=== PATIENT | female | born 1950 | race Caucasian/White ===

== ENCOUNTER 2017-10-06 09:57 | Day surgery (SDC) | payer MEDICARE, MEDICAID ==
[2017-10-05 18:05] VITALS: BMI 20.5
[~2017-10-06 09:57] MED LIST: Cyclopentolate 1% Opth Drop 2 ML BOT FS SCH; Fluorouracil 100 MG, Enoxaparin Sodium 25 MG, EPINEPHrine 0.3 MG in Ophthalmic Irrigati... IVPB SCH; Phenylephrine HCl 2.5% Ophth Soln 5 ML BOT FS SCH
[2017-10-06] MEDS ORDERED: Phenylephrine HCl 2.5% Ophth Soln 5 ML BOT ONE (10:26)
[2017-10-06] MEDS ORDERED: Cyclopentolate 1% Opth Drop 2 ML BOT ONE (10:26)
[2017-10-06] MEDS ORDERED: Diprivan 20 ML ONE (11:24)
[2017-10-06] MEDS ORDERED: Ondansetron HCl/PF 4 MG/2 ML Vial ONE (11:24)
[2017-10-06] MEDS ORDERED: Midazolam HCl 2 mg/2 ml Vial ONE (11:24)
[2017-10-06] MEDS ORDERED: Fentanyl 100 MCG/2 ML VIAL ONE (11:24)
[2017-10-06] MEDS ORDERED: Lidocaine 1% PF 5 ML VIAL ONE (16:17)
[2017-10-06] MEDS ORDERED: Propofol 200 MG/20 ML VIAL ONE (16:17)
--- NOTE | 2017-10-06 16:40 | OP ---
DATE OF PROCEDURE: 10/06/2017 PREOPERATIVE DIAGNOSIS: Macular hole, left eye. POSTOPERATIVE DIAGNOSIS: Macular hole, left eye. PROCEDURES: Pars plana vitrectomy, internal limiting membrane peel, left eye. SURGEON: Bossman Seth M.D. ANESTHESIA: General endotracheal anesthesia. PROCEDURE IN DETAIL: The patient was identified in the preoperative holding area. Appropriate infor med consent for the planned surgical procedure on the left eye had been obtained. The patient was tr ansported to the operative suite where appropriate cardiopulmonary monitoring was established. Local anesthesia was obtained using retrobulbar and modified Van Lint lid block using 50/50 mixture of 4% lidocaine and 0.75% bupivacaine. The patient was prepped and draped in the usual sterile manner for ophthalmic surgery on the left eye. Lid speculum was placed in the left eye. The 25-gauge trocars w ere placed in conjunctiva and sclera superotemporally, inferotemporally, and superonasally. Infusion line was placed inferotemporally. Light pipe and vitreous cutter were inserted into the eye. Core of vitrectomy was performed. Indocyanine green dye was infused onto the posterior pole x2, identifyi ng the internal limiting membrane. This was elevated using Bronson scraper and peeled into multiple pie merly from the posterior pole. Indirect endolaser photocoagulation was used to place prophylactic lase r behind the sclerotomy sites and wide field viewing system was used to examine the retina 360 degree s. No holes, breaks or tears were identified. A 15% percent perfluoropropane gas was infused into t he eye. Trocars were removed and eye was noted to retain pressure well. Retrobulbar Kenalog and sub conjunctival Ancef were placed. Atropine and antibiotic ointment were placed, and the eye was patche d and shielded. The patient was taken to the postoperative recovery unit in good condition having muñoz ffered no immediate perioperative complications. The patient was instructed to keep patch and shield on, avoid lifting or bending, and follow up in the morning with Dr. Seth.
== END 2017-10-06 15:28 | disposition home or self-care (01) ==
LOC: SDC 09:57
PROVIDERS: ATTEND Ophthalmology Retina Specialist
PROC: 08T53ZZ Resection of Left Vitreous, Percutaneous Approach (ICD-10-PCS; principal; 2017-10-06)
PROC: 08NF3ZZ Release Left Retina, Percutaneous Approach (ICD-10-PCS; 2017-10-06)
PROC: 3E0C3GC Introduction of Other Therapeutic Substance into Eye, Percutaneous Approach (ICD-10-PCS; 2017-10-06)
DX: H35.342 Macular cyst, hole, or pseudohole, left eye (principal); I69.354 Hemiplegia and hemiparesis following cerebral infarction affecting left non-dominant side; I25.2 Old myocardial infarction; I12.9 Hypertensive chronic kidney disease with stage 1 through stage 4 chronic kidney disease, or unspecified chronic kidney disease; N18.3 Chronic kidney disease, stage 3 (moderate); K21.9 Gastro-esophageal reflux disease without esophagitis; F32.9 Major depressive disorder, single episode, unspecified; E78.00 Pure hypercholesterolemia, unspecified; Z79.82 Long term (current) use of aspirin; Z79.899 Other long term (current) drug therapy; Z98.51 Tubal ligation status; Z95.1 Presence of aortocoronary bypass graft; Z96.642 Presence of left artificial hip joint; Z95.818 Presence of other cardiac implants and grafts; Z90.49 Acquired absence of other specified parts of digestive tract; Z90.5 Acquired absence of kidney; Z98.890 Other specified postprocedural states
CPT/HCPCS: 67025; J0171; J1650; J2001; J2250; J2405; J2704; J3010; J9190

== ENCOUNTER 2018-04-27 13:09 | Outpatient (CLI) | payer MEDICARE, MEDICAID | END 2018-04-27 13:10 | disposition home or self-care (01) | LOC: BICMAMMO 13:09 | PROVIDERS: ATTEND Family Medicine | DX: Z12.31 Encounter for screening mammogram for malignant neoplasm of breast (principal); R92.1 Mammographic calcification found on diagnostic imaging of breast | CPT/HCPCS: 77063; 77067 ==

== ENCOUNTER 2019-02-27 12:02 | Outpatient (CLI) | payer MEDICARE, OTHER ==
--- NOTE | 2019-02-27 14:51 | MRI ---
LUMBAR SPINE MRI WITHOUT IV CONTRAST: Date: 02/27/19 HISTORY: Left-sided sciatica with left hip pain. COMPARISON: 02/10/17. FINDINGS: Conus medullaris region is unremarkable, terminating at approximately L1-L2. Generalized disc desicca tion changes and ligament and facet hypertrophic changes. Bilateral renal T1 hypointense/T2 hyperintense foci, statistically cysts, showing little change from prior study. There is marked scarring and cortical volume loss of the left kidney. No canal or foraminal stenosis at T12-L1. At L1-L2, there are diffuse osteophytosis changes with a small central annular fissure with very mini mal thinning of the ventral left lateral recess. At L2-L3, there is diffuse disc bulging with moderate left lateral recess and mild right lateral rece ss stenosis, and mild foraminal stenosis, with associated annular fissure. At L3-L4, there is mild disc bulging with moderate left lateral recess stenosis and very mild right l ateral recess stenosis with mild foraminal stenosis. At L4-L5, there is mild bilateral recess stenosis and foraminal stenosis. At L5-S1, there is no significant associated stenosis. No abnormal marrow signal. IMPRESSION: 1. Variable severity multilevel mostly lateral recess and mild foraminal stenosis as above. 2. Renal T2 hyperintense, T1 hypointense foci, statistically cysts, with prominent left renal cortic al loss. POS: [facility]
== END 2019-02-27 12:03 | disposition home or self-care (01) ==
LOC: BICMRI 12:02
PROVIDERS: ATTEND Orthopaedic Surgery
DX: M54.32 Sciatica, left side (principal); N28.89 Other specified disorders of kidney and ureter; M48.061 Spinal stenosis, lumbar region without neurogenic claudication; N28.1 Cyst of kidney, acquired; R93.7 Abnormal findings on diagnostic imaging of other parts of musculoskeletal system
CPT/HCPCS: 72148

== ENCOUNTER 2019-04-30 14:04 | Outpatient (CLI) | payer MEDICARE, OTHER ==
--- NOTE | 2019-04-30 15:49 | MMO ---
Bilateral MAMMO Bilat Screen [facility]. CLINICAL HISTORY: Patient is 69 years old and is seen for screening. The patient has no family history of breast cancer. The patient has no personal history of cancer. VIEWS: The views performed were: bilateral craniocaudal with tomosynthesis and bilateral mediolateral oblique with tomosynthesis. FILMS COMPARED: The present examination has been compared to prior imaging studies performed at [facility] on 04/26/2017 and 04/27/2018, and at [facility] on 10/28/2011 and 06/27/2015. MAMMOGRAM FINDINGS: There are scattered fibroglandular densities. There are no suspicious masses, suspicious calcifications, or new areas of architectural distortion. IMPRESSION: THERE IS NO MAMMOGRAPHIC EVIDENCE OF MALIGNANCY. A ROUTINE FOLLOW-UP MAMMOGRAM IN 1 YEAR IS RECOMMENDED. THE RESULTS OF THIS EXAM WERE SENT TO THE PATIENT. ACR BI-RADS Category 1 - Negative MAMMOGRAPHY NOTE: 1. A negative mammogram report should not delay a biopsy if a dominant of clinically suspicious mass is present. 2. Approximately 10% to 15% of breast cancers are not detected by mammography. 3. Adenosis and dense breasts may obscure an underlying neoplasm.
== END 2019-04-30 14:05 | disposition home or self-care (01) ==
LOC: BICMAMMO 14:04
PROVIDERS: ATTEND Student in an Organized Health Care Education/Training Program
DX: Z12.31 Encounter for screening mammogram for malignant neoplasm of breast (principal)
CPT/HCPCS: 77063; 77067

== ENCOUNTER 2020-09-26 13:13 | Outpatient (CLI) | payer MEDICARE, OTHER ==
--- NOTE | 2020-09-26 14:16 | BD ---
EXAM: DEXA bone density examination HISTORY: 70-year-old postmenopausal female for screening COMPARISON: 06/23/2017 FINDINGS: L1--bone mineral density 0.833 g/sq cm; T score -1.4 L2--bone mineral density 0.840 g/sq cm; T score -1.7 L3--bone mineral density 0.937 g/sq cm; T score -1.3 L4--bone mineral density 0.950 g/sq cm; T score -1.0 Total L1-L4--bone mineral density 0.892 g/sq cm; T score -1.4 Right femoral neck--bone mineral density0.626; T score -2.0 Total proximal right femur--bone mineral density 0.724; T score -1.8 IMPRESSION: Osteopenia. This patient has a 10 year WHO fracture risk of a major osteoporotic fracture of 16% and of a hip fracture of 2.9%.
== END 2020-09-26 13:14 | disposition home or self-care (01) ==
LOC: BICMAMMO 13:13
PROVIDERS: ATTEND Student in an Organized Health Care Education/Training Program
DX: Z13.820 Encounter for screening for osteoporosis (principal); Z78.0 Asymptomatic menopausal state; M85.89 Other specified disorders of bone density and structure, multiple sites
CPT/HCPCS: 77080

== ENCOUNTER 2020-11-20 08:34 | Outpatient (CLI) | payer MEDICARE, OTHER ==
--- NOTE | 2020-11-20 10:41 | ULT ---
Please see the separately dictated, concurrently performed renal ultrasound for details concerning th e renal duplex evaluation. POS: [facility]
--- NOTE | 2020-11-20 10:41 | ULT ---
RENAL ULTRASOUND WITH DUPLEX EVALUATION: INDICATION: Chronic renal failure. COMPARISON: CT of the abdomen with and without contrast dated July 10 2007. TECHNIQUE: Lipscomb scale, color Doppler, and spectral Doppler images were obtained of the kidneys, renal vasculatur e, and aorta. FINDINGS: The right kidney measured 9.7 x 3.9 x 4.3 cm with renal cortical thickness measuring approximately 1. 1 cm. No focal solid renal lesion or hydronephrosis is evident. There is a 4 cm cyst involving the inferior pole of the right kidney. Peak systolic velocity within the right renal artery was 94.6 cm/s. The peak systolic velocity withi n the aorta was measured at 53.3 cm/s. The right renal artery to aortic ratio is 1.77. The sampled resistive index within an arcuate artery in the right kidney was 0.68. The left kidney is severely atrophic and was not well seen due to overlying bowel gas. The visualize d bladder had a prevoid bladder volume of 147.49 cc. IMPRESSION: 1. No focal solid renal lesion or hydronephrosis. 2. Small 4 mm cyst involving the inferior pole of the right kidney. 3. No evidence of renal artery stenosis. 4. Atrophic left kidney, not visualized on the current exam. POS: [facility]
== END 2020-11-20 08:35 | disposition home or self-care (01) ==
LOC: BICULT 08:34
PROVIDERS: ATTEND Internal Medicine Nephrology
DX: I13.10 Hypertensive heart and chronic kidney disease without heart failure, with stage 1 through stage 4 chronic kidney disease, or unspecified chronic kidney disease (principal); N18.9 Chronic kidney disease, unspecified; M32.10 Systemic lupus erythematosus, organ or system involvement unspecified; E78.5 Hyperlipidemia, unspecified; D63.1 Anemia in chronic kidney disease; I70.90 Unspecified atherosclerosis
CPT/HCPCS: 76770; 93975

== ENCOUNTER 2021-02-19 12:53 | Inpatient (IN) | payer MEDICARE, MEDICAID ==
[2021-02-19] MEDS ORDERED: cefTRIAXone\\ROCEPHIN 2 GM VIAL ONE (15:15)
[2021-02-19 15:22] LABS: Mean Corpuscular HGB CONC 31.2 g/dL (32.0-36.0); Mean Corpuscular Hemoglobin 28.1 pg (27.0-31.0); Mean Corpuscular Volume 90.1 fL (78.0-98.0); Mean Platelet Volume 8.5 fL (7.4-10.4); Platelet Count 355 thou/uL (130-400); RBC Distribution Width 12.8 % (11.5-14.5); White Blood Cell (WBC) Count 28.1 thou/uL (4.8-10.8)
[2021-02-19 15:40] LABS: ALT (SGPT) 7 U/L (8-55); AST (SGOT) 18 U/L (5-34); Albumin 4.1 g/dL (3.4-4.8); Alkaline Phosphatase 69 U/L (40-110); Anion Gap 15 mmol/L (10-20); BUN (Urea Nitrogen) 30 mg/dL (9.8-20.1); Bilirubin, Total 0.3 mg/dL (0.2-1.2); Calc. Creatinine Clearance 0 mL/min (70-130); Calcium 9.8 mg/dL (7.8-10.44); Carbon Dioxide 24 mmol/L (23-31); Chloride 103 mmol/L (98-107); Glucose 114 mg/dL (80-115); Potassium 4.1 mmol/L (3.5-5.1); Protein, Total 7.1 g/dL (5.8-8.1); Sodium 138 mmol/L (136-145)
[2021-02-19 15:48] LABS: Band 15 % (5-11); Basophilic Stippling SLIGHT = 1-2 cells (100X) (None Seen); Lymphocytes 7 % (21-51); MDiff Complete? YES; Monocytes 3 % (0-10); Neutrophil 75 % (42-75); Platelet Morphology Comment Appears Adequate; Polychromasia SLIGHT = 2-3 cells (100X) (0-2/hpf); Vacuoles SLIGHT
[2021-02-19] MEDS ORDERED: Azithromycin 500 MG VIAL ONE (15:56)
[2021-02-19 16:50] LABS: Bacteria/HPF 1+ HPF (None Seen); Bilirubin Negative (Negative); Blood, Urine Negative (Negative); Clarity Clear (Clear); Glucose, Urine (Dipstick) Normal (Negative); Ketone, Urine Negative (Negative); Leukocyte 250 Leu/uL (Negative); Nitrite 1+ (Negative); Protein, Urine (Dipstick) Negative (Neg-Trace); RBC/HPF 0-3 HPF (0-3); Specific Gravity, Urine 1.014 (1.002-1.036); Squamous Epithelial None Seen HPF (0-3); Urobilinogen Normal mg/dL (Less than 2); WBC/HPF 21-50 HPF (0-3)
[2021-02-19] MEDS ORDERED: Ondansetron ODT 4 MG TAB SL PRN (20:15)
[2021-02-19] MEDS ORDERED: Ondansetron PF 4 MG/2 ML Vial IVP PRN (20:15)
[2021-02-19] MEDS ORDERED: Acetaminophen 325 MG TAB PO PRN (20:15)
[2021-02-19] MEDS ORDERED: HYDROcodone/Acetaminophen 5/325 mg Tablet PO PRN (21:51)
[2021-02-19] MEDS: Sodium Chloride 0.9% 1,000 ML IV SCH (22:38)
[2021-02-20 01:03] VITALS: BMI 20.6
[2021-02-20 01:53] LABS: SARS-CoV-2 PCR by NAA Not Detected (NotDetected)
[2021-02-20 05:22] LABS: #Eosinphils 0.1 thou/uL (0.0-0.7); #Lymphocytes 1.8 thou/uL (1.20-3.40); #Neutrophils 12.2 thou/uL (1.40-6.50); %Basophils 0.2 % (0.0-1.0); %Eosinophils 0.7 % (0.0-10.0); %Monocytes 6.5 % (0.0-10.0); %Neutrophils 80.7 % (42.0-75.0); Hemoglobin 8.2 g/dL (12.0-16.0); Mean Corpuscular HGB CONC 31.2 g/dL (32.0-36.0); Mean Corpuscular Hemoglobin 28.2 pg (27.0-31.0); Mean Corpuscular Volume 90.3 fL (78.0-98.0); Mean Platelet Volume 8.4 fL (7.4-10.4); Platelet Count 284 thou/uL (130-400); RBC Distribution Width 12.8 % (11.5-14.5); Red Blood Cell (RBC) Count 2.89 mill/uL (4.20-5.40); White Blood Cell (WBC) Count 15.1 thou/uL (4.8-10.8)
[2021-02-20 05:47] LABS: Iron 9 ug/dL (50-170); Iron Binding Capacity, Total 221 mcg/dL (265-497)
[2021-02-20 05:52] LABS: Anion Gap 13 mmol/L (10-20); BUN (Urea Nitrogen) 23 mg/dL (9.8-20.1); Calc. Creatinine Clearance 35 mL/min (70-130); Calcium 8.7 mg/dL (7.8-10.44); Carbon Dioxide 23 mmol/L (23-31); Chloride 109 mmol/L (98-107); Glucose 82 mg/dL (80-115); Iron 10 ug/dL (50-170); Iron Binding Capacity, Total 225 mcg/dL (265-497); Potassium 3.6 mmol/L (3.5-5.1); Sodium 141 mmol/L (136-145)
[2021-02-20] MEDS: Aspirin 81 mg Enteric Coated Tablet PO SCH (08:31)
[2021-02-20] MEDS: Ferrous Sulfate 325 MG TAB PO SCH (08:31)
[2021-02-20] MEDS: Multivit, Therapeutic 1 TAB PO SCH (08:32)
[2021-02-20] MEDS: Bupropion 150 MG XL TAB PO SCH (08:32)
[2021-02-20] MEDS: Fish Oil 1,000 MG CAP PO SCH (08:32)
[2021-02-20] MEDS: Amlodipine 5 MG TAB PO SCH (08:32)
[2021-02-20] MEDS: Sodium Chloride 0.9% 1,000 ML IV SCH (09:37)
[2021-02-20] MEDS: cefTRIAXone\\ROCEPHIN 1 GM in Sodium Chloride 0.9% 100 ML IVPB SCH (14:11)
[2021-02-20] MEDS: Azithromycin 500 MG in Sodium Chloride 0.9% 250 ML 250 ML IVPB SCH (14:31)
[2021-02-20] MEDS ORDERED: Iron, Sodium Ferric Gluconate 250 MG in Sodium Chloride 0.9% 100 ML IVPB SCH (15:45)
[2021-02-20] MEDS: Fenofibrate 48 MG TAB PO SCH (20:38)
[2021-02-20] MEDS: guaiFENesin ER 600 MG TAB PO SCH (20:38)
[2021-02-20] MEDS: Atorvastatin Calcium 10 MG TAB PO SCH (20:38)
[2021-02-20] MEDS: Lisinopril 10 MG TAB PO SCH (22:54)
[2021-02-21] MEDS: Sodium Chloride 0.9% 1,000 ML IV SCH ×2 (03:17→17:21)
[2021-02-21] MEDS: guaiFENesin ER 600 MG TAB PO SCH ×2 (08:27→20:58)
[2021-02-21] MEDS: Amlodipine 5 MG TAB PO SCH (08:27)
[2021-02-21] MEDS: Fish Oil 1,000 MG CAP PO SCH (08:27)
[2021-02-21] MEDS: Bupropion 150 MG XL TAB PO SCH (08:27)
[2021-02-21] MEDS: Aspirin 81 mg Enteric Coated Tablet PO SCH (08:27)
[2021-02-21] MEDS: Multivit, Therapeutic 1 TAB PO SCH (08:27)
[2021-02-21] MEDS: Ferrous Sulfate 325 MG TAB PO SCH (08:27)
[2021-02-21] MEDS: cefTRIAXone\\ROCEPHIN 1 GM in Sodium Chloride 0.9% 100 ML IVPB SCH (17:20)
[2021-02-21] MEDS: Azithromycin 500 MG in Sodium Chloride 0.9% 250 ML 250 ML IVPB SCH (19:12)
[2021-02-21] MEDS: Lisinopril 10 MG TAB PO SCH (20:58)
[2021-02-21] MEDS: Fenofibrate 48 MG TAB PO SCH (20:58)
[2021-02-21] MEDS: Atorvastatin Calcium 10 MG TAB PO SCH (20:58)
[2021-02-21 23:01] LABS: #Eosinphils 0.3 thou/uL (0.0-0.7); #Lymphocytes 1.3 thou/uL (1.20-3.40); #Monocytes 0.8 thou/uL (0.11-0.59); #Neutrophils 6.5 thou/uL (1.40-6.50); %Basophils 0.3 % (0.0-1.0); %Eosinophils 2.9 % (0.0-10.0); %Lymphocytes 14.3 % (21.0-51.0); %Monocytes 8.6 % (0.0-10.0); %Neutrophils 73.9 % (42.0-75.0); Hemoglobin 8.2 g/dL (12.0-16.0); Mean Corpuscular HGB CONC 31.3 g/dL (32.0-36.0); Mean Corpuscular Hemoglobin 28.2 pg (27.0-31.0); Mean Corpuscular Volume 90.1 fL (78.0-98.0); Mean Platelet Volume 8.3 fL (7.4-10.4); Platelet Count 263 thou/uL (130-400); RBC Distribution Width 12.8 % (11.5-14.5); Red Blood Cell (RBC) Count 2.92 mill/uL (4.20-5.40); White Blood Cell (WBC) Count 8.8 thou/uL (4.8-10.8)
[2021-02-21 23:23] LABS: Anion Gap 12 mmol/L (10-20); BUN (Urea Nitrogen) 12 mg/dL (9.8-20.1); Calc. Creatinine Clearance 45 mL/min (70-130); Calcium 8.4 mg/dL (7.8-10.44); Carbon Dioxide 21 mmol/L (23-31); Chloride 113 mmol/L (98-107); Glucose 109 mg/dL (80-115); Magnesium 1.6 mg/dL (1.6-2.6); Potassium 3.7 mmol/L (3.5-5.1); Sodium 142 mmol/L (136-145)
[2021-02-22] MEDS: Sodium Chloride 0.9% 1,000 ML IV SCH (08:30)
[2021-02-22] MEDS: Bupropion 150 MG XL TAB PO SCH (08:31)
[2021-02-22] MEDS: Fish Oil 1,000 MG CAP PO SCH (08:31)
[2021-02-22] MEDS: Multivit, Therapeutic 1 TAB PO SCH (08:31)
[2021-02-22] MEDS: Amlodipine 5 MG TAB PO SCH (08:31)
[2021-02-22] MEDS: Aspirin 81 mg Enteric Coated Tablet PO SCH (08:31)
[2021-02-22] MEDS: Ferrous Sulfate 325 MG TAB PO SCH (08:31)
[2021-02-22] MEDS: guaiFENesin ER 600 MG TAB PO SCH ×2 (08:31→21:38)
[2021-02-22] MEDS: Azithromycin 500 MG in Sodium Chloride 0.9% 250 ML 250 ML IVPB SCH (18:02)
[2021-02-22] MEDS: cefTRIAXone\\ROCEPHIN 1 GM in Sodium Chloride 0.9% 100 ML IVPB SCH (18:02)
[2021-02-22] MEDS: Fenofibrate 48 MG TAB PO SCH (21:37)
[2021-02-22] MEDS: Lisinopril 10 MG TAB PO SCH (21:38)
[2021-02-22] MEDS: Atorvastatin Calcium 10 MG TAB PO SCH (21:38)
[2021-02-23] MEDS: Sodium Chloride 0.9% 1,000 ML IV SCH ×2 (01:41→13:47)
[2021-02-23 06:28] LABS: #Eosinphils 0.3 thou/uL (0.0-0.7); #Lymphocytes 1.4 thou/uL (1.20-3.40); %Basophils 0.4 % (0.0-1.0); %Eosinophils 2.9 % (0.0-10.0); %Lymphocytes 14.5 % (21.0-51.0); %Monocytes 10.1 % (0.0-10.0); %Neutrophils 72.2 % (42.0-75.0); Hemoglobin 8.3 g/dL (12.0-16.0); Mean Corpuscular HGB CONC 32.8 g/dL (32.0-36.0); Mean Corpuscular Hemoglobin 29.4 pg (27.0-31.0); Mean Corpuscular Volume 89.8 fL (78.0-98.0); Mean Platelet Volume 8.7 fL (7.4-10.4); Platelet Count 327 thou/uL (130-400); RBC Distribution Width 12.9 % (11.5-14.5); Red Blood Cell (RBC) Count 2.83 mill/uL (4.20-5.40); White Blood Cell (WBC) Count 9.6 thou/uL (4.8-10.8)
[2021-02-23 06:41] LABS: Anion Gap 11 mmol/L (10-20); BUN (Urea Nitrogen) 9 mg/dL (9.8-20.1); Calc. Creatinine Clearance 54 mL/min (70-130); Calcium 8.6 mg/dL (7.8-10.44); Carbon Dioxide 24 mmol/L (23-31); Chloride 110 mmol/L (98-107); Glucose 97 mg/dL (80-115); Potassium 3.5 mmol/L (3.5-5.1); Sodium 141 mmol/L (136-145)
[2021-02-23] MEDS ORDERED: Azithromycin 250 MG TAB PO SCH (09:00)
[2021-02-23] MEDS: Ferrous Sulfate 325 MG TAB PO SCH (10:11)
[2021-02-23] MEDS: guaiFENesin ER 600 MG TAB PO SCH (10:12)
[2021-02-23] MEDS: Multivit, Therapeutic 1 TAB PO SCH (10:12)
[2021-02-23] MEDS: Bupropion 150 MG XL TAB PO SCH (10:12)
[2021-02-23] MEDS: Amlodipine 5 MG TAB PO SCH (10:12)
[2021-02-23] MEDS: Aspirin 81 mg Enteric Coated Tablet PO SCH (10:12)
[2021-02-23] MEDS: Fish Oil 1,000 MG CAP PO SCH (10:12)
[2021-02-23 13:56] VITALS: BP 138/65; TEMP 98.3
== END 2021-02-23 15:29 | disposition home or self-care (01) | DRG 871 ==
LOC: ERS 12:53 → 2SW 17:32 → OBSVTOIN 02-20 07:25
PROVIDERS: ADMIT Internal Medicine; ATTEND Internal Medicine
DX: A41.9 Sepsis, unspecified organism (principal); J18.9 Pneumonia, unspecified organism; S42.202A Unspecified fracture of upper end of left humerus, initial encounter for closed fracture; N17.9 Acute kidney failure, unspecified; N39.0 Urinary tract infection, site not specified; I69.354 Hemiplegia and hemiparesis following cerebral infarction affecting left non-dominant side; Z20.822 Contact with and (suspected) exposure to COVID-19; I25.10 Atherosclerotic heart disease of native coronary artery without angina pectoris; Z96.642 Presence of left artificial hip joint; I73.9 Peripheral vascular disease, unspecified; W18.30XA Fall on same level, unspecified, initial encounter; E78.00 Pure hypercholesterolemia, unspecified; F32.9 Major depressive disorder, single episode, unspecified; D50.9 Iron deficiency anemia, unspecified; I12.9 Hypertensive chronic kidney disease with stage 1 through stage 4 chronic kidney disease, or unspecified chronic kidney disease; N18.30 Chronic kidney disease, stage 3 unspecified; Z95.828 Presence of other vascular implants and grafts; Z95.5 Presence of coronary angioplasty implant and graft; Z95.1 Presence of aortocoronary bypass graft; Z79.899 Other long term (current) drug therapy; Z79.82 Long term (current) use of aspirin; I25.2 Old myocardial infarction; Z90.5 Acquired absence of kidney; Z90.49 Acquired absence of other specified parts of digestive tract; Z79.01 Long term (current) use of anticoagulants
CPT/HCPCS: 36415; 51701; 70450; 71045; 71250; 76770; 80048; 80053; 81003; 81015; 82607; 82728; 82746; 83540; 83550; 83605; 83735; 85025; 87040; 87086; 87635; 93005; 94760; 96365; 96367; G0378; J0456; J0696; J2916; J3490; J7050; U0003; U0005

== ENCOUNTER 2022-03-24 09:53 | Inpatient (IN) | payer MEDICARE, MEDICAID ==
[2022-03-24 10:35] LABS: #Eosinphils 0.3 thou/uL (0.0-0.7); #Lymphocytes 1.8 thou/uL (1.20-3.40); #Monocytes 0.5 thou/uL (0.11-0.59); #Neutrophils 4.5 thou/uL (1.40-6.50); %Basophils 0.6 % (0.0-1.0); %Eosinophils 4.1 % (0.0-10.0); %Lymphocytes 25.8 % (21.0-51.0); %Neutrophils 62.5 % (42.0-75.0); Hemoglobin 8.3 g/dL (12.0-16.0); Mean Corpuscular HGB CONC 30.9 g/dL (32.0-36.0); Mean Corpuscular Hemoglobin 27.7 pg (27.0-31.0); Mean Corpuscular Volume 89.8 fL (78.0-98.0); Mean Platelet Volume 8.8 fL (7.4-10.4); Platelet Count 345 thou/uL (130-400); RBC Distribution Width 13.6 % (11.5-14.5); White Blood Cell (WBC) Count 7.1 thou/uL (4.8-10.8)
[2022-03-24 10:56] LABS: ALT (SGPT) Less than 7 U/L (8-55); AST (SGOT) 13 U/L (5-34); Albumin 3.7 g/dL (3.4-4.8); Alkaline Phosphatase 58 U/L (40-110); Anion Gap 12 mmol/L (10-20); BUN (Urea Nitrogen) 20 mg/dL (9.8-20.1); Bilirubin, Total 0.4 mg/dL (0.2-1.2); Calc. Creatinine Clearance 0 mL/min (70-130); Calcium 8.8 mg/dL (7.8-10.44); Carbon Dioxide 24 mmol/L (23-31); Chloride 109 mmol/L (98-107); Globulin 2.7 g/dL (2.4-3.5); Glucose 102 mg/dL (80-115); Protein, Total 6.4 g/dL (5.8-8.1); Sodium 141 mmol/L (136-145)
[2022-03-24] MEDS ORDERED: Furosemide 40 MG/4 ML VIAL ONE (12:00)
[2022-03-24 12:08] LABS: CKMB 2.2 ng/mL (0-6.6)
[2022-03-24 13:53] LABS: Troponin I 0.169 ng/mL (< 0.028)
[2022-03-24] MEDS ORDERED: Ondansetron ODT 4 MG TAB PO PRN (14:16)
[2022-03-24] MEDS ORDERED: Acetaminophen 325 MG TAB PO PRN (14:16)
[2022-03-24 15:06] VITALS: BMI 19.0
[2022-03-24 15:39] LABS: Magnesium 1.4 mg/dL (1.6-2.6)
[2022-03-24 16:12] LABS: Troponin I 0.182 ng/mL (< 0.028)
[2022-03-24] MEDS: Fenofibrate 48 MG TAB PO SCH (21:17)
[2022-03-24] MEDS: Lisinopril 10 MG TAB PO SCH (21:17)
[2022-03-24] MEDS: Rivaroxaban 2.5 MG TAB PO SCH (21:18)
[2022-03-24] MEDS: Atorvastatin Calcium 10 MG TAB PO SCH (21:18)
[2022-03-24 21:44] LABS: SARS-CoV-2 PCR by NAA Not Detected (NotDetected)
[2022-03-24 22:37] LABS: Troponin I 0.221 ng/mL (< 0.028)
[2022-03-25] MEDS ORDERED: Electrolyte Replacement Protocol 1 EACH FS SCH (00:30)
[2022-03-25] MEDS ORDERED: Furosemide 40 MG/4 ML VIAL SLOW IVP SCH (00:30)
[2022-03-25 04:38] LABS: #Eosinphils 0.2 thou/uL (0.0-0.7); #Lymphocytes 1.4 thou/uL (1.20-3.40); #Neutrophils 5.4 thou/uL (1.40-6.50); %Basophils 0.4 % (0.0-1.0); %Eosinophils 1.9 % (0.0-10.0); %Lymphocytes 17.2 % (21.0-51.0); %Monocytes 12.5 % (0.0-10.0); Hemoglobin 8.5 g/dL (12.0-16.0); Mean Corpuscular HGB CONC 31.2 g/dL (32.0-36.0); Mean Corpuscular Hemoglobin 28.1 pg (27.0-31.0); Mean Platelet Volume 8.9 fL (7.4-10.4); Platelet Count 303 thou/uL (130-400); RBC Distribution Width 13.8 % (11.5-14.5); Red Blood Cell (RBC) Count 3.01 mill/uL (4.20-5.40)
[2022-03-25 05:05] LABS: ALT (SGPT) Less than 7 U/L (8-55); AST (SGOT) 13 U/L (5-34); Albumin 3.5 g/dL (3.4-4.8); Alkaline Phosphatase 55 U/L (40-110); Anion Gap 15 mmol/L (10-20); BUN (Urea Nitrogen) 24 mg/dL (9.8-20.1); Bilirubin, Total 0.4 mg/dL (0.2-1.2); Calc. Creatinine Clearance 25 mL/min (70-130); Calcium 8.6 mg/dL (7.8-10.44); Carbon Dioxide 24 mmol/L (23-31); Chloride 106 mmol/L (98-107); Globulin 2.6 g/dL (2.4-3.5); Glucose 93 mg/dL (80-115); Potassium 3.4 mmol/L (3.5-5.1); Protein, Total 6.1 g/dL (5.8-8.1); Sodium 142 mmol/L (136-145)
[2022-03-25] MEDS ORDERED: Potassium Chloride 20 MEQ TAB PO SCH (05:30)
[2022-03-25] MEDS: Furosemide 40 MG/4 ML VIAL SLOW IVP SCH ×2 (06:15→15:27)
[2022-03-25] MEDS ORDERED: Magnesium 2 GM/50 ML(in water) 2 GM in Premix Bag 1 BAG IVPB SCH (06:15)
[2022-03-25] MEDS ORDERED: Rivaroxaban 2.5 MG TAB PO SCH (09:00)
[2022-03-25] MEDS: Bupropion 150 MG XL TAB PO SCH (09:24)
[2022-03-25] MEDS: Aspirin 81 mg Enteric Coated Tablet PO SCH (09:24)
[2022-03-25] MEDS: Fish Oil 1,000 MG CAP PO SCH (09:24)
[2022-03-25] MEDS: Rivaroxaban 2.5 MG TAB PO SCH ×2 (09:24→20:37)
[2022-03-25] MEDS: Amlodipine 5 MG TAB PO SCH (09:24)
[2022-03-25] MEDS: Atorvastatin Calcium 10 MG TAB PO SCH (20:35)
[2022-03-25] MEDS: Fenofibrate 48 MG TAB PO SCH (20:35)
[2022-03-25] MEDS: Lisinopril 10 MG TAB PO SCH (20:35)
[2022-03-26 03:57] LABS: #Eosinphils 0.3 thou/uL (0.0-0.7); #Lymphocytes 1.4 thou/uL (1.20-3.40); #Neutrophils 4.7 thou/uL (1.40-6.50); %Basophils 0.4 % (0.0-1.0); %Eosinophils 4.3 % (0.0-10.0); %Lymphocytes 18.2 % (21.0-51.0); %Monocytes 13.6 % (0.0-10.0); %Neutrophils 63.6 % (42.0-75.0); Hemoglobin 7.9 g/dL (12.0-16.0); Mean Corpuscular HGB CONC 30.7 g/dL (32.0-36.0); Mean Corpuscular Hemoglobin 27.3 pg (27.0-31.0); Mean Platelet Volume 8.9 fL (7.4-10.4); Platelet Count 300 thou/uL (130-400); White Blood Cell (WBC) Count 7.4 thou/uL (4.8-10.8)
[2022-03-26 04:22] LABS: ALT (SGPT) Less than 7 U/L (8-55); AST (SGOT) 13 U/L (5-34); Albumin 3.4 g/dL (3.4-4.8); Alkaline Phosphatase 51 U/L (40-110); Anion Gap 13 mmol/L (10-20); BUN (Urea Nitrogen) 34 mg/dL (9.8-20.1); Bilirubin, Total 0.4 mg/dL (0.2-1.2); Calc. Creatinine Clearance 27 mL/min (70-130); Calcium 8.6 mg/dL (7.8-10.44); Carbon Dioxide 26 mmol/L (23-31); Chloride 105 mmol/L (98-107); Globulin 2.6 g/dL (2.4-3.5); Glucose 102 mg/dL (80-115); Potassium 3.9 mmol/L (3.5-5.1); Sodium 140 mmol/L (136-145)
[2022-03-26] MEDS ORDERED: Magnesium 2 GM/50 ML(in water) 2 GM in Premix Bag 1 BAG IVPB SCH (06:00)
[2022-03-26] MEDS ORDERED: Furosemide 20 MG/2 ML VIAL SLOW IVP SCH (06:00)
[2022-03-26] MEDS: Amlodipine 5 MG TAB PO SCH (09:51)
[2022-03-26] MEDS: Fish Oil 1,000 MG CAP PO SCH (09:52)
[2022-03-26] MEDS: Aspirin 81 mg Enteric Coated Tablet PO SCH (09:52)
[2022-03-26] MEDS: Furosemide 20 MG TAB PO SCH (09:52)
[2022-03-26] MEDS: Bupropion 150 MG XL TAB PO SCH (09:52)
[2022-03-26] MEDS: Atorvastatin Calcium 10 MG TAB PO SCH (20:14)
[2022-03-26] MEDS: Lisinopril 10 MG TAB PO SCH (20:14)
[2022-03-26] MEDS: Fenofibrate 48 MG TAB PO SCH (20:14)
[2022-03-26] MEDS: Rivaroxaban 2.5 MG TAB PO SCH ×2 (20:14)
[2022-03-27 04:06] LABS: #Eosinphils 0.2 thou/uL (0.0-0.7); #Lymphocytes 1.1 thou/uL (1.20-3.40); #Monocytes 0.9 thou/uL (0.11-0.59); %Basophils 0.4 % (0.0-1.0); %Eosinophils 2.9 % (0.0-10.0); %Lymphocytes 14.5 % (21.0-51.0); %Monocytes 12.8 % (0.0-10.0); %Neutrophils 69.4 % (42.0-75.0); Hemoglobin 7.5 g/dL (12.0-16.0); Mean Corpuscular Hemoglobin 27.5 pg (27.0-31.0); Mean Corpuscular Volume 88.8 fL (78.0-98.0); Platelet Count 278 thou/uL (130-400); Red Blood Cell (RBC) Count 2.73 mill/uL (4.20-5.40); White Blood Cell (WBC) Count 7.3 thou/uL (4.8-10.8)
[2022-03-27 04:26] LABS: ALT (SGPT) Less than 7 U/L (8-55); AST (SGOT) 12 U/L (5-34); Albumin 3.3 g/dL (3.4-4.8); Alkaline Phosphatase 51 U/L (40-110); Anion Gap 14 mmol/L (10-20); BUN (Urea Nitrogen) 33 mg/dL (9.8-20.1); Bilirubin, Total 0.3 mg/dL (0.2-1.2); Calc. Creatinine Clearance 28 mL/min (70-130); Calcium 8.5 mg/dL (7.8-10.44); Carbon Dioxide 26 mmol/L (23-31); Chloride 104 mmol/L (98-107); Globulin 2.6 g/dL (2.4-3.5); Glucose 100 mg/dL (80-115); Potassium 3.6 mmol/L (3.5-5.1); Protein, Total 5.9 g/dL (5.8-8.1); Sodium 140 mmol/L (136-145)
[2022-03-27] MEDS ORDERED: Potassium Chloride 20 MEQ TAB PO SCH ×2 (08:45→14:30)
[2022-03-27] MEDS: Aspirin 81 mg Enteric Coated Tablet PO SCH (09:52)
[2022-03-27] MEDS: Fish Oil 1,000 MG CAP PO SCH (09:52)
[2022-03-27] MEDS: Furosemide 20 MG TAB PO SCH (09:52)
[2022-03-27] MEDS: Bupropion 150 MG XL TAB PO SCH (09:52)
[2022-03-27] MEDS: Rivaroxaban 2.5 MG TAB PO SCH ×2 (09:53→21:30)
[2022-03-27] MEDS: Metoprolol Tartrate 25 MG TAB PO SCH ×2 (10:34→22:01)
[2022-03-27] MEDS ORDERED: Lisinopril 2.5 MG TAB PO SCH (21:00)
[2022-03-27] MEDS ORDERED: Furosemide 40 MG/4 ML VIAL SLOW IVP SCH (21:30)
[2022-03-27] MEDS: Fenofibrate 48 MG TAB PO SCH (21:32)
[2022-03-27] MEDS: Atorvastatin Calcium 10 MG TAB PO SCH (21:32)
[2022-03-28 04:56] LABS: ALT (SGPT) Less than 7 U/L (8-55); AST (SGOT) 13 U/L (5-34); Albumin 3.6 g/dL (3.4-4.8); Alkaline Phosphatase 54 U/L (40-110); Anion Gap 17 mmol/L (10-20); BUN (Urea Nitrogen) 34 mg/dL (9.8-20.1); Bilirubin, Total 0.5 mg/dL (0.2-1.2); Calc. Creatinine Clearance 28 mL/min (70-130); Carbon Dioxide 20 mmol/L (23-31); Chloride 109 mmol/L (98-107); Globulin 2.8 g/dL (2.4-3.5); Glucose 83 mg/dL (80-115); Protein, Total 6.4 g/dL (5.8-8.1); Sodium 141 mmol/L (136-145)
[2022-03-28 05:05] LABS: #Eosinphils 0.3 thou/uL (0.0-0.7); #Lymphocytes 1.5 thou/uL (1.20-3.40); #Monocytes 1.3 thou/uL (0.11-0.59); #Neutrophils 5.9 thou/uL (1.40-6.50); %Basophils 0.2 % (0.0-1.0); %Eosinophils 3.3 % (0.0-10.0); %Lymphocytes 16.4 % (21.0-51.0); %Monocytes 14.7 % (0.0-10.0); %Neutrophils 65.4 % (42.0-75.0); Hemoglobin 10.1 g/dL (12.0-16.0); Mean Corpuscular HGB CONC 29.7 g/dL (32.0-36.0); Mean Corpuscular Hemoglobin 26.9 pg (27.0-31.0); Mean Corpuscular Volume 90.6 fL (78.0-98.0); Mean Platelet Volume 9.1 fL (7.4-10.4); Platelet Count 343 thou/uL (130-400); RBC Distribution Width 13.6 % (11.5-14.5); Red Blood Cell (RBC) Count 3.75 mill/uL (4.20-5.40)
[2022-03-28] MEDS: Aspirin 81 mg Enteric Coated Tablet PO SCH (09:43)
[2022-03-28] MEDS: Metoprolol Tartrate 25 MG TAB PO SCH ×2 (09:43→20:26)
[2022-03-28] MEDS: Fish Oil 1,000 MG CAP PO SCH (09:43)
[2022-03-28] MEDS: Bupropion 150 MG XL TAB PO SCH (09:43)
[2022-03-28] MEDS: Furosemide 20 MG TAB PO SCH (09:43)
[2022-03-28] MEDS: Atorvastatin Calcium 10 MG TAB PO SCH (20:26)
[2022-03-28] MEDS: Fenofibrate 48 MG TAB PO SCH (20:26)
[2022-03-28] MEDS: Enoxaparin Sodium 60 MG/0.6 ML SYRINGE SC SCH (21:51)
[2022-03-29 04:31] LABS: #Basophils 0.1 thou/uL (0.0-0.2); #Eosinphils 0.3 thou/uL (0.0-0.7); #Lymphocytes 1.7 thou/uL (1.20-3.40); #Monocytes 1.1 thou/uL (0.11-0.59); #Neutrophils 6.1 thou/uL (1.40-6.50); %Basophils 0.6 % (0.0-1.0); %Eosinophils 3.2 % (0.0-10.0); %Lymphocytes 18.6 % (21.0-51.0); %Monocytes 11.8 % (0.0-10.0); %Neutrophils 65.8 % (42.0-75.0); Hemoglobin 10.1 g/dL (12.0-16.0); Mean Corpuscular HGB CONC 30.8 g/dL (32.0-36.0); Mean Corpuscular Hemoglobin 27.7 pg (27.0-31.0); Mean Corpuscular Volume 89.7 fL (78.0-98.0); Mean Platelet Volume 9.3 fL (7.4-10.4); Platelet Count 348 thou/uL (130-400); Red Blood Cell (RBC) Count 3.64 mill/uL (4.20-5.40); White Blood Cell (WBC) Count 9.3 thou/uL (4.8-10.8)
[2022-03-29 04:58] LABS: ALT (SGPT) 7 U/L (8-55); AST (SGOT) 14 U/L (5-34); Albumin 3.5 g/dL (3.4-4.8); Alkaline Phosphatase 50 U/L (40-110); Anion Gap 13 mmol/L (10-20); BUN (Urea Nitrogen) 39 mg/dL (9.8-20.1); Bilirubin, Total 0.3 mg/dL (0.2-1.2); Calc. Creatinine Clearance 30 mL/min (70-130); Calcium 9.3 mg/dL (7.8-10.44); Carbon Dioxide 25 mmol/L (23-31); Chloride 107 mmol/L (98-107); Globulin 2.7 g/dL (2.4-3.5); Glucose 101 mg/dL (80-115); Potassium 4.2 mmol/L (3.5-5.1); Protein, Total 6.2 g/dL (5.8-8.1); Sodium 141 mmol/L (136-145)
[2022-03-29] MEDS: Aspirin 81 mg Enteric Coated Tablet PO SCH (10:05)
[2022-03-29] MEDS: Fish Oil 1,000 MG CAP PO SCH (10:05)
[2022-03-29] MEDS: Furosemide 20 MG TAB PO SCH (10:06)
[2022-03-29] MEDS: Bupropion 150 MG XL TAB PO SCH (10:06)
[2022-03-29] MEDS: Metoprolol Tartrate 25 MG TAB PO SCH ×2 (10:06→20:43)
[2022-03-29 11:25] LABS: Magnesium 1.9 mg/dL (1.6-2.6); Phosphorus 3.2 mg/dL (2.3-4.7)
[2022-03-29] MEDS ORDERED: Magnesium 2 GM/50 ML(in water) 2 GM in Premix Bag 1 BAG IVPB SCH (14:00)
[2022-03-29] MEDS: Enoxaparin Sodium 60 MG/0.6 ML SYRINGE SC SCH (20:42)
[2022-03-29] MEDS: Fenofibrate 48 MG TAB PO SCH (20:43)
[2022-03-29] MEDS ORDERED: Atorvastatin Calcium 40 MG TAB PO SCH (21:00)
[2022-03-30 04:24] LABS: #Eosinphils 0.3 thou/uL (0.0-0.7); #Lymphocytes 1.3 thou/uL (1.20-3.40); #Neutrophils 5.5 thou/uL (1.40-6.50); %Basophils 0.5 % (0.0-1.0); %Eosinophils 3.5 % (0.0-10.0); %Lymphocytes 15.8 % (21.0-51.0); %Monocytes 11.9 % (0.0-10.0); %Neutrophils 68.3 % (42.0-75.0); Hemoglobin 10.4 g/dL (12.0-16.0); Mean Corpuscular HGB CONC 31.7 g/dL (32.0-36.0); Mean Corpuscular Hemoglobin 28.4 pg (27.0-31.0); Mean Corpuscular Volume 89.6 fL (78.0-98.0); Mean Platelet Volume 9.2 fL (7.4-10.4); Platelet Count 327 thou/uL (130-400); RBC Distribution Width 14.2 % (11.5-14.5); Red Blood Cell (RBC) Count 3.65 mill/uL (4.20-5.40); White Blood Cell (WBC) Count 8.1 thou/uL (4.8-10.8)
[2022-03-30 05:13] LABS: Anion Gap 15 mmol/L (10-20); BUN (Urea Nitrogen) 36 mg/dL (9.8-20.1); Calc. Creatinine Clearance 32 mL/min (70-130); Calcium 9.2 mg/dL (7.8-10.44); Carbon Dioxide 21 mmol/L (23-31); Chloride 105 mmol/L (98-107); Glucose 87 mg/dL (80-115); Magnesium 2.2 mg/dL (1.6-2.6); Phosphorus 3.4 mg/dL (2.3-4.7); Sodium 137 mmol/L (136-145)
[2022-03-30] MEDS: Fish Oil 1,000 MG CAP PO SCH (10:13)
[2022-03-30] MEDS: Bupropion 150 MG XL TAB PO SCH (10:14)
[2022-03-30] MEDS: Furosemide 20 MG TAB PO SCH (10:14)
[2022-03-30] MEDS: Aspirin 81 mg Enteric Coated Tablet PO SCH (10:15)
[2022-03-30] MEDS: Metoprolol Tartrate 25 MG TAB PO SCH (10:15)
[2022-03-30 12:38] VITALS: TEMP 97.7
[2022-03-30 16:12] VITALS: BP 118/55
== END 2022-03-30 16:28 | disposition home health service (06) | DRG 291 ==
LOC: ERS 09:53 → 2NO 12:06
PROVIDERS: ADMIT Student in an Organized Health Care Education/Training Program; ATTEND Family Medicine
PROC: 30233N1 Transfusion of Nonautologous Red Blood Cells into Peripheral Vein, Percutaneous Approach (ICD-10-PCS; principal; 2022-03-24)
DX: I13.0 Hypertensive heart and chronic kidney disease with heart failure and stage 1 through stage 4 chronic kidney disease, or unspecified chronic kidney disease (principal); I50.33 Acute on chronic diastolic (congestive) heart failure; Z20.822 Contact with and (suspected) exposure to COVID-19; J96.01 Acute respiratory failure with hypoxia; J44.1 Chronic obstructive pulmonary disease with (acute) exacerbation; E46 Unspecified protein-calorie malnutrition; R64 Cachexia; N17.9 Acute kidney failure, unspecified; Z68.1 Body mass index [BMI] 19.9 or less, adult; I69.354 Hemiplegia and hemiparesis following cerebral infarction affecting left non-dominant side; I47.2 Ventricular tachycardia; R62.7 Adult failure to thrive; I25.10 Atherosclerotic heart disease of native coronary artery without angina pectoris; N18.30 Chronic kidney disease, stage 3 unspecified; N26.1 Atrophy of kidney (terminal); F32.A Depression, unspecified; E78.00 Pure hypercholesterolemia, unspecified; Z96.649 Presence of unspecified artificial hip joint; I73.9 Peripheral vascular disease, unspecified; I08.3 Combined rheumatic disorders of mitral, aortic and tricuspid valves; E87.6 Hypokalemia; E83.42 Hypomagnesemia; Z95.1 Presence of aortocoronary bypass graft; Z98.890 Other specified postprocedural states; Z28.21 Immunization not carried out because of patient refusal; I25.2 Old myocardial infarction; Z95.5 Presence of coronary angioplasty implant and graft; Z79.01 Long term (current) use of anticoagulants; Z90.49 Acquired absence of other specified parts of digestive tract; Z87.442 Personal history of urinary calculi; Z79.899 Other long term (current) drug therapy; Z79.82 Long term (current) use of aspirin; Z87.891 Personal history of nicotine dependence
CPT/HCPCS: 36415; 36430; 71045; 80048; 80053; 82553; 83735; 83880; 84100; 84443; 84484; 85025; 86850; 86900; 86901; 93005; 93306; 93798; 94640; 96374; 97139; J1650; J1940; J3475; J7620; P9016; U0003; U0005

== ENCOUNTER 2022-04-12 13:53 | Inpatient (IN) | payer MEDICARE, MEDICAID ==
[2022-04-12] MEDS ORDERED: EPINEPHrine 1 MG/10 ML Abboject SYRINGE ONE (14:07)
[2022-04-12] MEDS ORDERED: Norepinephrine 8 MG/0.9% NS 0 ML ONE (14:07)
[2022-04-12] MEDS ORDERED: Norepinephrine 8 MG/0.9% NS 250 ML ONE (14:09)
[2022-04-12 14:12] LABS: Mean Corpuscular HGB CONC 30.2 g/dL (32.0-36.0); Mean Corpuscular Hemoglobin 27.2 pg (27.0-31.0); Mean Corpuscular Volume 90.2 fL (78.0-98.0); Mean Platelet Volume 10.1 fL (7.4-10.4); Platelet Count 380 thou/uL (130-400); RBC Distribution Width 16.6 % (11.5-14.5); Red Blood Cell (RBC) Count 2.21 mill/uL (4.20-5.40); White Blood Cell (WBC) Count 17.3 thou/uL (4.8-10.8)
[2022-04-12] MEDS ORDERED: Succinylcholine 200 MG/10 ml SYRINGE FS ONE (14:12)
[2022-04-12 14:26] LABS: Band 1 % (5-11); Hypochromia SLIGHT = 6-15 cells (100X) (0-5/hpf); Lymphocytes 26 % (21-51); MDiff Complete? YES; Monocytes 5 % (0-10); Neutrophil 47 % (42-75); Platelet Morphology Comment Appears Adequate; Polychromasia SLIGHT = 2-3 cells (100X) (0-2/hpf); Reactive Lymphocytes 20 % (0-10)
[2022-04-12 14:27] LABS: Anion Gap 27 mmol/L (10-20); BUN (Urea Nitrogen) 47 mg/dL (9.8-20.1); Calc. Creatinine Clearance 0 mL/min (70-130); Carbon Dioxide 10 mmol/L (23-31); Chloride 107 mmol/L (98-107); Potassium 4.5 mmol/L (3.5-5.1); Sodium 139 mmol/L (136-145)
[2022-04-12 14:28] LABS: ALT (SGPT) 11 U/L (8-55); AST (SGOT) 13 U/L (5-34); Albumin 3.4 g/dL (3.4-4.8); Alkaline Phosphatase 65 U/L (40-110); Bilirubin, Total 0.2 mg/dL (0.2-1.2); CK (CPK) 28 U/L (29-168); Calcium 8.6 mg/dL (7.8-10.44); Glucose 249 mg/dL (80-115); Protein, Total 5.4 g/dL (5.8-8.1)
[2022-04-12] MEDS ORDERED: Lorazepam 2 MG/ML VIAL ONE (14:39)
[2022-04-12] MEDS ORDERED: Propofol 1,000 MG/100 ML VIAL IV ONE (14:39)
[2022-04-12 14:50] LABS: CKMB 1.8 ng/mL (0-6.6)
[2022-04-12 14:54] LABS: Actual Bicarbonate (HCO3a) 8.8 mEq/L (22-28); Analyzer IN Cardio ER; CO2 Tension 31.6 mmHg (35.0-45.0); Calcium, Ionized (arterial) 0.98 mmol/L (1.12-1.30); Carboxyhemoglobin (COHb) 0.3 gm% (0.0-3.0); Hemoglobin (Hb) 7.7 g/dL (12.0-16.0); O2 Tension (PaO2), arterial 487.4 mmHg (> 70.0); Potassium - ABG Lab 4.98 mmol/L (3.70-5.30)
[2022-04-12 14:58] LABS: Puncture Site RBA; pH, Arterial 7.06 (7.35-7.45)
[2022-04-12 15:18] LABS: INR-International Normal Ratio 1.2; Prothrombin Time 15.2 sec (12.0-14.7)
[2022-04-12 15:19] LABS: PTT 27.8 sec (22.9-36.1)
[2022-04-12] MEDS ORDERED: cefTRIAXone\\ROCEPHIN 1 GM VIAL ONE (15:58)
[2022-04-12] MEDS ORDERED: Pantoprazole 40 MG VIAL ONE (16:02)
[2022-04-12] MEDS ORDERED: Electrolyte Replacement Protocol 1 EACH IVPB ONE (16:16)
[2022-04-12] MEDS ORDERED: Insulin Regular 300 UNITS/3 ML VIAL SC PRN (16:16)
[2022-04-12 16:21] LABS: Bilirubin Negative (Negative); Blood, Urine 1+ (Negative); Glucose, Urine (Dipstick) Normal (Negative); Ketone, Urine Negative (Negative); Leukocyte 75 Leu/uL (Negative); Nitrite Negative (Negative); Protein, Urine (Dipstick) 50 mg/dL (Neg-Trace); Urobilinogen Normal mg/dL (Less than 2); pH, Urine 5.5 (5.0-9.0)
[2022-04-12 16:28] LABS: Amphetamine Not Detected (NotDetected); Barbiturates Screen Not Detected (NotDetected); Benzodiazepine Screen Not Detected (NotDetected); Cocaine Metabolite Screen Not Detected (NotDetected); Methadone Not Detected (NotDetected); Methamphetamine Not Detected (NotDetected); Opiate Screen Not Detected (NotDetected); Oxycodone Screen Not Detected (NotDetected); Phencyclidine (PCP) Not Detected (NotDetected); THC/Cannabinoid Screen Not Detected (NotDetected); Tricyclic Screen Not Detected (NotDetected)
[2022-04-12] MEDS ORDERED: Ventilator Sedation Protocol 1 EACH FS SCH (16:30)
[2022-04-12 16:31] LABS: Bacteria/HPF 2+ HPF (None Seen); Clarity Cloudy (Clear); Squamous Epithelial 0-3 HPF (0-3)
[2022-04-12] MEDS ORDERED: Lorazepam 2 MG/ML VIAL SLOW IVP PRN (17:00)
[2022-04-12] MEDS ORDERED: DISCONTINUE PREVIOUS NARCOTIC PAIN MEDICATIONS AND BENZODIAZEPINES FS SCH (17:00)
[2022-04-12] MEDS ORDERED: Morphine 4 MG/ML VIAL SLOW IVP PRN (17:00)
[2022-04-12] MEDS ORDERED: Propofol BOLUS 1,000 MG/100 ML VIAL IV PRN (17:00)
[2022-04-12] MEDS ORDERED: Electrolyte Replacement Protocol FS PRN (17:00)
[2022-04-12] MEDS ORDERED: Fentanyl BOLUS 250 ML IVPB PRN (17:00)
[2022-04-12 17:03] LABS: Actual Bicarbonate (HCO3v) 18 mEq/L (22-28); Analyzer IN Cardio ER; Base Excess -6.3 mEq/L (-2.0 to +3.0); Calcium, Ionized (venous) 0.97 mmol/L (1.16-1.32); Chloride (VBG) 109 mmol/L (98-106); Hemoglobin (Hb) 10.6 g/dL (11.7-16.1); Potassium (VBG) 4.08 mmol/L (3.70-5.30); Sodium 138.5 mmol/L (133-146); pH (venous) 7.39 (7.32-7.43)
[2022-04-12 17:17] LABS: Hemoglobin 9.8 g/dL (12.0-16.0)
[2022-04-12 17:18] LABS: SARS-CoV-2 NAA Rapid Test DETECTED (NotDetected)
[2022-04-12 17:28] LABS: Lactic Acid 3.6 mmol/L (0.5-2.2); Magnesium 1.5 mg/dL (1.6-2.6); Phosphorus 4.6 mg/dL (2.3-4.7)
[2022-04-12] MEDS ORDERED: Albuterol 200 PUFF (6.7GM INHALER) INH PRN (18:00)
[2022-04-12 18:13] LABS: CKMB 40.9 ng/mL (0-6.6)
[2022-04-12] MEDS: Sodium Bicarbonate 70 MEQ in Sodium Chloride 0.45% 1,000 ML IV SCH (18:51)
[2022-04-12] MEDS: Albuterol 200 PUFF (6.7GM INHALER) INH SCH ×2 (18:52→22:28)
[2022-04-12] MEDS ORDERED: Magnesium 2 GM/50 ML(in water) 2 GM in Premix Bag 1 BAG IVPB SCH (21:00)
[2022-04-12] MEDS ORDERED: Vancomycin 1 GM in Premix Bag 1 BAG IVPB SCH (21:45)
[2022-04-12] MEDS: Propofol 1,000 MG/100 ML VIAL IV PRN (21:50)
[2022-04-12] MEDS: Pantoprazole 40 MG VIAL IVP SCH (21:50)
[2022-04-12 22:09] LABS: Hemoglobin 9.4 g/dL (12.0-16.0)
[2022-04-12] MEDS ORDERED: Cefepime 1 GM in Sodium Chloride 0.9% 100 ML IVPB SCH (23:00)
[2022-04-13] MEDS: Sodium Bicarbonate 70 MEQ in Sodium Chloride 0.45% 1,000 ML IV SCH (02:20)
[2022-04-13] MEDS: Albuterol 200 PUFF (6.7GM INHALER) INH SCH ×6 (02:29→21:42)
[2022-04-13 04:55] LABS: #Lymphocytes 2.7 thou/uL (1.20-3.40); #Monocytes 1.8 thou/uL (0.11-0.59); #Neutrophils 14.2 thou/uL (1.40-6.50); %Basophils 0.1 % (0.0-1.0); %Eosinophils 0.3 % (0.0-10.0); %Lymphocytes 14.6 % (21.0-51.0); %Monocytes 9.4 % (0.0-10.0); %Neutrophils 75.7 % (42.0-75.0); Hemoglobin 8.7 g/dL (12.0-16.0); Mean Corpuscular HGB CONC 33.2 g/dL (32.0-36.0); Mean Corpuscular Hemoglobin 29.3 pg (27.0-31.0); Mean Corpuscular Volume 88.2 fL (78.0-98.0); Mean Platelet Volume 8.5 fL (7.4-10.4); Platelet Count 401 thou/uL (130-400); RBC Distribution Width 15.3 % (11.5-14.5); Red Blood Cell (RBC) Count 2.97 mill/uL (4.20-5.40); White Blood Cell (WBC) Count 18.8 thou/uL (4.8-10.8)
[2022-04-13 05:24] LABS: ALT (SGPT) 41 U/L (8-55); AST (SGOT) 111 U/L (5-34); Albumin 2.7 g/dL (3.4-4.8); Alkaline Phosphatase 128 U/L (40-110); Anion Gap 13 mmol/L (10-20); BUN (Urea Nitrogen) 36 mg/dL (9.8-20.1); Bilirubin, Total 0.3 mg/dL (0.2-1.2); Calc. Creatinine Clearance 33 mL/min (70-130); Calcium 7.4 mg/dL (7.8-10.44); Carbon Dioxide 21 mmol/L (23-31); Chloride 108 mmol/L (98-107); Glucose 143 mg/dL (80-115); Magnesium 2.2 mg/dL (1.6-2.6); Potassium 3.1 mmol/L (3.5-5.1); Protein, Total 4.7 g/dL (5.8-8.1); Sodium 139 mmol/L (136-145)
[2022-04-13 05:28] LABS: Phosphorus 2.4 mg/dL (2.3-4.7)
[2022-04-13] MEDS: fentaNYL Citrate-0.9 % NaCl/PF 100 ML IVPB SCH (06:56)
[2022-04-13 07:15] LABS: Actual Bicarbonate (HCO3a) 21.1 mEq/L (22-28); Base Excess (BEa) -3.1 mEq/L (-2.0 to +3.0); Calcium, Ionized (arterial) 1.05 mmol/L (1.12-1.30); Carboxyhemoglobin (COHb) 0.3 gm% (0.0-3.0); Hemoglobin (Hb) 9.1 g/dL (12.0-16.0); O2 Tension (PaO2), arterial 99.3 mmHg (> 70.0); Potassium - ABG Lab 3.01 mmol/L (3.70-5.30); pH, Arterial 7.41 (7.35-7.45)
[2022-04-13] MEDS ORDERED: Potassium Chloride 20 MEQ TAB PO SCH (08:00)
[2022-04-13 08:20] LABS: Hemoglobin 8.7 g/dL (12.0-16.0)
[2022-04-13] MEDS: Potassium Chloride 20 MEQ in Premix Bag 1 BAG IVPB SCH ×2 (08:38→10:26)
[2022-04-13] MEDS: Pantoprazole 40 MG VIAL IVP SCH ×2 (08:38→20:08)
[2022-04-13 09:38] LABS: Puncture Site RRA
[2022-04-13] MEDS ORDERED: Piperacillin/Tazobactam 3.375 GM in Sodium Chloride 0.9% 100 ML IVPB SCH (10:30)
[2022-04-13] MEDS ORDERED: Sodium Bicarbonate 70 MEQ in Sodium Chloride 0.45% 1,000 ML IV SCH (10:37)
[2022-04-13] MEDS ORDERED: Furosemide 40 MG/4 ML VIAL SLOW IVP SCH (12:15)
[2022-04-13] MEDS: Norepinephrine 8 MG/0.9% NS 250 ML IVPB PRN ×2 (12:28→23:53)
[2022-04-13 14:57] LABS: ALT (SGPT) 36 U/L (8-55); AST (SGOT) 86 U/L (5-34); Albumin 2.7 g/dL (3.4-4.8); Alkaline Phosphatase 130 U/L (40-110); Anion Gap 13 mmol/L (10-20); BUN (Urea Nitrogen) 27 mg/dL (9.8-20.1); Bilirubin, Total 0.4 mg/dL (0.2-1.2); Calc. Creatinine Clearance 36 mL/min (70-130); Calcium 7.6 mg/dL (7.8-10.44); Carbon Dioxide 23 mmol/L (23-31); Chloride 105 mmol/L (98-107); Globulin 2.1 g/dL (2.4-3.5); Glucose 116 mg/dL (80-115); Potassium 4.2 mmol/L (3.5-5.1); Protein, Total 4.8 g/dL (5.8-8.1); Sodium 137 mmol/L (136-145)
[2022-04-13] MEDS: Piperacillin/Tazobactam 3.375 GM in Sodium Chloride 0.9% 100 ML IVPB SCH ×2 (15:46→22:36)
[2022-04-13] MEDS: Propofol 1,000 MG/100 ML VIAL IV PRN (15:47)
[2022-04-13] MEDS ORDERED: cefTRIAXone\\ROCEPHIN 2 GM in Sodium Chloride 0.9% 100 ML IVPB SCH (16:00)
[2022-04-13 19:33] LABS: Hemoglobin 8.6 g/dL (12.0-16.0)
[2022-04-13] MEDS: Acetaminophen 650 MG/20.3 ML UDCUP PO PRN (20:08)
[2022-04-13] MEDS ORDERED: VANCOMYCIN IVPB SCH (21:00)
[2022-04-13 23:02] LABS: Vancomycin, Random 9.7 ug/mL (See Comment)
[2022-04-13] MEDS ORDERED: Vancomycin HCl 750 MG in Sodium Chloride 0.9% 250 ML 250 ML IVPB SCH (23:59)
[2022-04-14] MEDS: fentaNYL Citrate-0.9 % NaCl/PF 100 ML IVPB SCH ×2 (01:10→20:48)
[2022-04-14 01:36] LABS: Hemoglobin 8.3 g/dL (12.0-16.0)
[2022-04-14] MEDS: Albuterol 200 PUFF (6.7GM INHALER) INH SCH ×6 (02:08→21:40)
[2022-04-14] MEDS: Propofol 1,000 MG/100 ML VIAL IV PRN ×2 (03:15→17:36)
[2022-04-14 04:38] LABS: #Eosinphils 0.1 thou/uL (0.0-0.7); #Lymphocytes 2.3 thou/uL (1.20-3.40); #Monocytes 1.1 thou/uL (0.11-0.59); #Neutrophils 8.9 thou/uL (1.40-6.50); %Basophils 0.2 % (0.0-1.0); %Eosinophils 1.1 % (0.0-10.0); %Lymphocytes 18.2 % (21.0-51.0); %Monocytes 8.8 % (0.0-10.0); %Neutrophils 71.7 % (42.0-75.0); Hemoglobin 8.2 g/dL (12.0-16.0); Mean Corpuscular HGB CONC 33.1 g/dL (32.0-36.0); Mean Corpuscular Hemoglobin 29.5 pg (27.0-31.0); Mean Corpuscular Volume 89.3 fL (78.0-98.0); Mean Platelet Volume 8.6 fL (7.4-10.4); Platelet Count 293 thou/uL (130-400); RBC Distribution Width 15.8 % (11.5-14.5); Red Blood Cell (RBC) Count 2.79 mill/uL (4.20-5.40); White Blood Cell (WBC) Count 12.5 thou/uL (4.8-10.8)
[2022-04-14 05:02] LABS: Albumin 2.4 g/dL (3.4-4.8); Anion Gap 12 mmol/L (10-20); BUN (Urea Nitrogen) 22 mg/dL (9.8-20.1); Bilirubin, Total 0.5 mg/dL (0.2-1.2); Calc. Creatinine Clearance 35 mL/min (70-130); Calcium 7.5 mg/dL (7.8-10.44); Carbon Dioxide 25 mmol/L (23-31); Chloride 107 mmol/L (98-107); Glucose 103 mg/dL (80-115); Potassium 3.5 mmol/L (3.5-5.1); Protein, Total 4.5 g/dL (5.8-8.1); Sodium 140 mmol/L (136-145)
[2022-04-14 05:03] LABS: ALT (SGPT) 28 U/L (8-55); AST (SGOT) 55 U/L (5-34); Alkaline Phosphatase 137 U/L (40-110); Globulin 2.1 g/dL (2.4-3.5)
[2022-04-14] MEDS: Piperacillin/Tazobactam 3.375 GM in Sodium Chloride 0.9% 100 ML IVPB SCH ×3 (06:19→22:20)
[2022-04-14] MEDS: Potassium Chloride 20 MEQ in Premix Bag 1 BAG IVPB SCH ×2 (06:19→11:44)
[2022-04-14 07:06] LABS: Actual Bicarbonate (HCO3a) 24.2 mEq/L (22-28); Base Excess (BEa) 1.4 mEq/L (-2.0 to +3.0); CO2 Tension 30.7 mmHg (35.0-45.0); Calcium, Ionized (arterial) 1.07 mmol/L (1.12-1.30); Carboxyhemoglobin (COHb) 0.7 gm% (0.0-3.0); Hemoglobin (Hb) 8.5 g/dL (12.0-16.0); O2 Tension (PaO2), arterial 110.3 mmHg (> 70.0); Potassium - ABG Lab 3.92 mmol/L (3.70-5.30); pH, Arterial 7.51 (7.35-7.45)
[2022-04-14 07:10] LABS: ALV-art Gradient 136.525 mmHg (0-20); Puncture Site RBA
[2022-04-14 08:03] LABS: Magnesium 1.8 mg/dL (1.6-2.6)
[2022-04-14] MEDS: Pantoprazole 40 MG VIAL IVP SCH ×2 (09:28→20:14)
[2022-04-14] MEDS ORDERED: Magnesium 2 GM/50 ML(in water) 2 GM in Premix Bag 1 BAG IVPB SCH (10:00)
[2022-04-14] MEDS ORDERED: methylPREDNISolone Sod Succ 40 MG VIAL IVP SCH (12:45)
[2022-04-14] MEDS: methylPREDNISolone Sod Succ 40 MG VIAL IVP SCH ×2 (17:37→23:13)
[2022-04-14 18:17] LABS: Hemoglobin 8.7 g/dL (12.0-16.0)
[2022-04-15] MEDS: Albuterol 200 PUFF (6.7GM INHALER) INH SCH ×6 (02:59→22:23)
[2022-04-15 05:00] LABS: #Basophils 0.1 thou/uL (0.0-0.2); #Lymphocytes 0.5 thou/uL (1.20-3.40); #Monocytes 0.1 thou/uL (0.11-0.59); #Neutrophils 10.1 thou/uL (1.40-6.50); %Basophils 1.1 % (0.0-1.0); %Eosinophils 0.1 % (0.0-10.0); %Lymphocytes 4.9 % (21.0-51.0); %Monocytes 0.9 % (0.0-10.0); Hemoglobin 8.8 g/dL (12.0-16.0); Mean Corpuscular HGB CONC 32.3 g/dL (32.0-36.0); Mean Corpuscular Volume 89.9 fL (78.0-98.0); Mean Platelet Volume 8.8 fL (7.4-10.4); Platelet Count 375 thou/uL (130-400); RBC Distribution Width 15.9 % (11.5-14.5); Red Blood Cell (RBC) Count 3.02 mill/uL (4.20-5.40); White Blood Cell (WBC) Count 10.9 thou/uL (4.8-10.8)
[2022-04-15 05:26] LABS: ALT (SGPT) 24 U/L (8-55); AST (SGOT) 32 U/L (5-34); Albumin 2.7 g/dL (3.4-4.8); Alkaline Phosphatase 149 U/L (40-110); Anion Gap 13 mmol/L (10-20); BUN (Urea Nitrogen) 20 mg/dL (9.8-20.1); Bilirubin, Total 0.5 mg/dL (0.2-1.2); Calc. Creatinine Clearance 34 mL/min (70-130); Calcium 8.1 mg/dL (7.8-10.44); Carbon Dioxide 23 mmol/L (23-31); Chloride 109 mmol/L (98-107); Globulin 2.6 g/dL (2.4-3.5); Glucose 152 mg/dL (80-115); Protein, Total 5.3 g/dL (5.8-8.1); Sodium 141 mmol/L (136-145)
[2022-04-15] MEDS: methylPREDNISolone Sod Succ 40 MG VIAL IVP SCH ×4 (05:29→21:33)
[2022-04-15] MEDS: Propofol 1,000 MG/100 ML VIAL IV PRN (05:29)
[2022-04-15] MEDS: Piperacillin/Tazobactam 3.375 GM in Sodium Chloride 0.9% 100 ML IVPB SCH (06:05)
[2022-04-15 07:23] LABS: Actual Bicarbonate (HCO3a) 19.1 mEq/L (22-28); Base Excess (BEa) -3.8 mEq/L (-2.0 to +3.0); CO2 Tension 26.9 mmHg (35.0-45.0); Calcium, Ionized (arterial) 1.15 mmol/L (1.12-1.30); Carboxyhemoglobin (COHb) 0.4 gm% (0.0-3.0); Hemoglobin (Hb) 8.7 g/dL (12.0-16.0); O2 Tension (PaO2), arterial 120.8 mmHg (> 70.0); pH, Arterial 7.47 (7.35-7.45)
[2022-04-15 07:24] LABS: ALV-art Gradient 130.775 mmHg (0-20); Puncture Site RBA
[2022-04-15] MEDS ORDERED: DC Sedation Protocol FS ONE (07:38)
[2022-04-15] MEDS: Pantoprazole 40 MG VIAL IVP SCH ×2 (09:26→21:33)
[2022-04-15] MEDS ORDERED: Dextrose 5%-Lactated Ringers 1,000 ML IV SCH (17:00)
[2022-04-16 02:08] LABS: Actual Bicarbonate (HCO3a) 19.8 mEq/L (22-28); Base Excess (BEa) -5.6 mEq/L (-2.0 to +3.0); CO2 Tension 38.5 mmHg (35.0-45.0); Calcium, Ionized (arterial) 1.15 mmol/L (1.12-1.30); Carboxyhemoglobin (COHb) 0.3 gm% (0.0-3.0); Hemoglobin (Hb) 9.5 g/dL (12.0-16.0); O2 Tension (PaO2), arterial 174.2 mmHg (> 70.0); Potassium - ABG Lab 4.76 mmol/L (3.70-5.30); pH, Arterial 7.33 (7.35-7.45)
[2022-04-16 02:09] LABS: Puncture Site RBA
[2022-04-16 02:13] LABS: ALV-art Gradient 490.675 mmHg (0-20)
[2022-04-16] MEDS: Albuterol 200 PUFF (6.7GM INHALER) INH SCH ×6 (02:20→22:57)
[2022-04-16] MEDS: methylPREDNISolone Sod Succ 40 MG VIAL IVP SCH ×4 (02:30→20:05)
[2022-04-16] MEDS ORDERED: Furosemide 20 MG/2 ML VIAL SLOW IVP SCH (04:15)
[2022-04-16 05:11] LABS: Band 5 % (5-11); Hemoglobin 8.9 g/dL (12.0-16.0); Hypochromia SLIGHT = 6-15 cells (100X) (0-5/hpf); Lymphocytes 4 % (21-51); MDiff Complete? YES; Mean Corpuscular HGB CONC 30.9 g/dL (32.0-36.0); Mean Corpuscular Hemoglobin 28.8 pg (27.0-31.0); Mean Corpuscular Volume 93.3 fL (78.0-98.0); Mean Platelet Volume 8.3 fL (7.4-10.4); Neutrophil 91 % (42-75); Platelet Count 457 thou/uL (130-400); Platelet Morphology Comment Appears Increased; RBC Distribution Width 15.8 % (11.5-14.5); White Blood Cell (WBC) Count 21.2 thou/uL (4.8-10.8)
[2022-04-16 05:22] LABS: ALT (SGPT) 23 U/L (8-55); AST (SGOT) 36 U/L (5-34); Albumin 2.9 g/dL (3.4-4.8); Alkaline Phosphatase 134 U/L (40-110); Anion Gap 17 mmol/L (10-20); BUN (Urea Nitrogen) 35 mg/dL (9.8-20.1); Bilirubin, Total 0.4 mg/dL (0.2-1.2); Calc. Creatinine Clearance 21 mL/min (70-130); Calcium 8.6 mg/dL (7.8-10.44); Carbon Dioxide 20 mmol/L (23-31); Chloride 109 mmol/L (98-107); Globulin 2.5 g/dL (2.4-3.5); Glucose 125 mg/dL (80-115); Potassium 4.7 mmol/L (3.5-5.1); Protein, Total 5.4 g/dL (5.8-8.1); Sodium 141 mmol/L (136-145)
[2022-04-16 07:08] LABS: Bacteria/HPF None Seen HPF (None Seen); Bilirubin Negative (Negative); Blood, Urine Negative (Negative); Clarity Clear (Clear); Glucose, Urine (Dipstick) Normal (Negative); Ketone, Urine Negative (Negative); Leukocyte Negative Leu/uL (Negative); Nitrite Negative (Negative); Protein, Urine (Dipstick) 10 mg/dL (Neg-Trace); RBC/HPF 0-3 HPF (0-3); Specific Gravity, Urine 1.025 (1.002-1.036); Squamous Epithelial 0-3 HPF (0-3); Urobilinogen Normal mg/dL (Less than 2); WBC/HPF 0-3 HPF (0-3)
[2022-04-16 07:57] LABS: Magnesium 2.6 mg/dL (1.6-2.6)
[2022-04-16] MEDS ORDERED: Ventilator Sedation Protocol 1 EACH FS ONE (08:01)
[2022-04-16] MEDS ORDERED: Propofol BOLUS 1,000 MG/100 ML VIAL IV PRN (08:15)
[2022-04-16] MEDS ORDERED: Piperacillin/Tazobactam 3.375 GM in Sodium Chloride 0.9% 100 ML IVPB SCH ×2 (08:15→12:00)
[2022-04-16] MEDS ORDERED: Lorazepam 2 MG/ML VIAL SLOW IVP PRN (08:15)
[2022-04-16] MEDS ORDERED: fentaNYL Citrate/PF 2,000 MCG in Sodium Chloride 0.9% 60 ML IV SCH (08:15)
[2022-04-16] MEDS ORDERED: Fentanyl BOLUS 250 ML IVPB PRN (08:15)
[2022-04-16] MEDS ORDERED: Morphine 4 MG/ML VIAL SLOW IVP PRN (08:15)
[2022-04-16] MEDS: Pantoprazole 40 MG VIAL IVP SCH ×2 (08:56→20:05)
[2022-04-16 09:26] LABS: Actual Bicarbonate (HCO3a) 20.2 mEq/L (22-28); Base Excess (BEa) -4.5 mEq/L (-2.0 to +3.0); CO2 Tension 35.7 mmHg (35.0-45.0); Calcium, Ionized (arterial) 1.14 mmol/L (1.12-1.30); Hemoglobin (Hb) 10.5 g/dL (12.0-16.0); O2 Tension (PaO2), arterial 97.4 mmHg (> 70.0); Potassium - ABG Lab 5.25 mmol/L (3.70-5.30); pH, Arterial 7.37 (7.35-7.45)
[2022-04-16 09:28] LABS: Puncture Site RBA
[2022-04-16 09:29] LABS: ALV-art Gradient 357.075 mmHg (0-20)
[2022-04-16] MEDS: Propofol 1,000 MG/100 ML VIAL IV PRN (11:00)
[2022-04-16] MEDS ORDERED: Furosemide 40 MG/4 ML VIAL SLOW IVP SCH (12:15)
[2022-04-16] MEDS: Piperacillin/Tazobactam 3.375 GM in Sodium Chloride 0.9% 100 ML IVPB SCH (12:40)
[2022-04-16] MEDS ORDERED: Metoprolol Tartrate 25 MG TAB PO SCH (15:30)
[2022-04-16] MEDS: Acetaminophen 650 MG/20.3 ML UDCUP PO PRN (15:50)
[2022-04-16] MEDS: Metoprolol Tartrate 25 MG TAB PO SCH (20:05)
[2022-04-17] MEDS: Piperacillin/Tazobactam 3.375 GM in Sodium Chloride 0.9% 100 ML IVPB SCH ×2 (00:14→12:17)
[2022-04-17] MEDS: methylPREDNISolone Sod Succ 40 MG VIAL IVP SCH ×4 (02:13→20:16)
[2022-04-17] MEDS: Albuterol 200 PUFF (6.7GM INHALER) INH SCH ×6 (03:21→23:05)
[2022-04-17] MEDS: Propofol 1,000 MG/100 ML VIAL IV PRN (04:51)
[2022-04-17] MEDS: Acetaminophen 650 MG/20.3 ML UDCUP PO PRN ×2 (04:51→10:17)
[2022-04-17 05:44] LABS: ALT (SGPT) 20 U/L (8-55); AST (SGOT) 26 U/L (5-34); Albumin 2.9 g/dL (3.4-4.8); Alkaline Phosphatase 99 U/L (40-110); Anion Gap 17 mmol/L (10-20); BUN (Urea Nitrogen) 50 mg/dL (9.8-20.1); Bilirubin, Total 0.3 mg/dL (0.2-1.2); Calc. Creatinine Clearance 19 mL/min (70-130); Carbon Dioxide 20 mmol/L (23-31); Chloride 108 mmol/L (98-107); Globulin 2.4 g/dL (2.4-3.5); Glucose 135 mg/dL (80-115); Potassium 4.2 mmol/L (3.5-5.1); Protein, Total 5.3 g/dL (5.8-8.1); Sodium 141 mmol/L (136-145)
[2022-04-17 05:47] LABS: Band 1 % (5-11); Hemoglobin 8.3 g/dL (12.0-16.0); Lymphocytes 10 % (21-51); MDiff Complete? YES; Mean Corpuscular Hemoglobin 29.3 pg (27.0-31.0); Mean Corpuscular Volume 91.6 fL (78.0-98.0); Mean Platelet Volume 8.6 fL (7.4-10.4); Monocytes 5 % (0-10); Neutrophil 84 % (42-75); Platelet Count 399 thou/uL (130-400); Platelet Morphology Comment Appears Adequate; RBC Distribution Width 15.8 % (11.5-14.5); RBC Morphology Normal; Red Blood Cell (RBC) Count 2.82 mill/uL (4.20-5.40); White Blood Cell (WBC) Count 14.9 thou/uL (4.8-10.8)
[2022-04-17 07:26] LABS: Actual Bicarbonate (HCO3a) 18.8 mEq/L (22-28); CO2 Tension 27.5 mmHg (35.0-45.0); Calcium, Ionized (arterial) 1.14 mmol/L (1.12-1.30); Carboxyhemoglobin (COHb) 0.3 gm% (0.0-3.0); Hemoglobin (Hb) 11.2 g/dL (12.0-16.0); O2 Tension (PaO2), arterial 107.5 mmHg (> 70.0); Potassium - ABG Lab 4.44 mmol/L (3.70-5.30); pH, Arterial 7.45 (7.35-7.45)
[2022-04-17 07:47] LABS: Puncture Site RBA
[2022-04-17 07:48] LABS: ALV-art Gradient 178.975 mmHg (0-20)
[2022-04-17] MEDS: Metoprolol Tartrate 25 MG TAB PO SCH ×2 (08:29→20:16)
[2022-04-17] MEDS: Pantoprazole 40 MG VIAL IVP SCH ×2 (08:29→20:17)
[2022-04-18] MEDS: Albuterol 200 PUFF (6.7GM INHALER) INH SCH ×6 (01:57→23:05)
[2022-04-18] MEDS: methylPREDNISolone Sod Succ 40 MG VIAL IVP SCH ×4 (03:08→20:02)
[2022-04-18] MEDS: Piperacillin/Tazobactam 3.375 GM in Sodium Chloride 0.9% 100 ML IVPB SCH ×3 (03:09→23:38)
[2022-04-18 04:50] LABS: #Lymphocytes 0.7 thou/uL (1.20-3.40); #Monocytes 0.9 thou/uL (0.11-0.59); #Neutrophils 10.6 thou/uL (1.40-6.50); %Basophils 0.1 % (0.0-1.0); %Eosinophils 0.1 % (0.0-10.0); %Lymphocytes 5.3 % (21.0-51.0); %Monocytes 7.2 % (0.0-10.0); %Neutrophils 87.4 % (42.0-75.0); Hemoglobin 7.8 g/dL (12.0-16.0); Mean Corpuscular HGB CONC 31.4 g/dL (32.0-36.0); Mean Corpuscular Hemoglobin 28.9 pg (27.0-31.0); Mean Platelet Volume 8.8 fL (7.4-10.4); Platelet Count 320 thou/uL (130-400); RBC Distribution Width 15.6 % (11.5-14.5); Red Blood Cell (RBC) Count 2.71 mill/uL (4.20-5.40); White Blood Cell (WBC) Count 12.1 thou/uL (4.8-10.8)
[2022-04-18 05:09] LABS: ALT (SGPT) 17 U/L (8-55); AST (SGOT) 22 U/L (5-34); Albumin 2.9 g/dL (3.4-4.8); Alkaline Phosphatase 80 U/L (40-110); Anion Gap 15 mmol/L (10-20); BUN (Urea Nitrogen) 60 mg/dL (9.8-20.1); Bilirubin, Total 0.3 mg/dL (0.2-1.2); Calc. Creatinine Clearance 23 mL/min (70-130); Carbon Dioxide 21 mmol/L (23-31); Chloride 110 mmol/L (98-107); Globulin 2.2 g/dL (2.4-3.5); Glucose 127 mg/dL (80-115); Potassium 4.4 mmol/L (3.5-5.1); Protein, Total 5.1 g/dL (5.8-8.1); Sodium 142 mmol/L (136-145)
[2022-04-18 06:52] LABS: Actual Bicarbonate (HCO3a) 19.1 mEq/L (22-28); Base Excess (BEa) -4.1 mEq/L (-2.0 to +3.0); CO2 Tension 28.2 mmHg (35.0-45.0); Calcium, Ionized (arterial) 1.16 mmol/L (1.12-1.30); Carboxyhemoglobin (COHb) 0.2 gm% (0.0-3.0); Hemoglobin (Hb) 8.6 g/dL (12.0-16.0); O2 Tension (PaO2), arterial 77.1 mmHg (> 70.0); Potassium - ABG Lab 4.23 mmol/L (3.70-5.30); pH, Arterial 7.45 (7.35-7.45)
[2022-04-18 06:56] LABS: Puncture Site RRA
[2022-04-18] MEDS: Metoprolol Tartrate 25 MG TAB PO SCH ×2 (08:25→20:02)
[2022-04-18] MEDS: Pantoprazole 40 MG VIAL IVP SCH ×2 (08:26→20:02)
[2022-04-18 08:59] LABS: Hemoglobin 7.8 g/dL (12.0-16.0)
[2022-04-19] MEDS: methylPREDNISolone Sod Succ 40 MG VIAL IVP SCH ×4 (00:44→20:44)
[2022-04-19] MEDS: Albuterol 200 PUFF (6.7GM INHALER) INH SCH ×6 (02:48→21:28)
[2022-04-19 05:12] LABS: #Lymphocytes 0.6 thou/uL (1.20-3.40); #Monocytes 0.7 thou/uL (0.11-0.59); #Neutrophils 9.8 thou/uL (1.40-6.50); %Basophils 0.2 % (0.0-1.0); %Eosinophils 0.1 % (0.0-10.0); %Lymphocytes 5.6 % (21.0-51.0); %Monocytes 5.8 % (0.0-10.0); %Neutrophils 88.3 % (42.0-75.0); Hemoglobin 8.1 g/dL (12.0-16.0); Mean Corpuscular HGB CONC 32.2 g/dL (32.0-36.0); Mean Corpuscular Hemoglobin 29.4 pg (27.0-31.0); Mean Corpuscular Volume 91.3 fL (78.0-98.0); Platelet Count 365 thou/uL (130-400); RBC Distribution Width 15.9 % (11.5-14.5); Red Blood Cell (RBC) Count 2.75 mill/uL (4.20-5.40); White Blood Cell (WBC) Count 11.1 thou/uL (4.8-10.8)
[2022-04-19 05:29] LABS: ALT (SGPT) 18 U/L (8-55); AST (SGOT) 21 U/L (5-34); Alkaline Phosphatase 77 U/L (40-110); Anion Gap 13 mmol/L (10-20); BUN (Urea Nitrogen) 60 mg/dL (9.8-20.1); Bilirubin, Total 0.4 mg/dL (0.2-1.2); Calc. Creatinine Clearance 27 mL/min (70-130); Calcium 8.2 mg/dL (7.8-10.44); Carbon Dioxide 22 mmol/L (23-31); Chloride 109 mmol/L (98-107); Globulin 2.3 g/dL (2.4-3.5); Glucose 129 mg/dL (80-115); Potassium 3.9 mmol/L (3.5-5.1); Protein, Total 5.3 g/dL (5.8-8.1); Sodium 140 mmol/L (136-145)
[2022-04-19 07:02] LABS: Actual Bicarbonate (HCO3a) 18.9 mEq/L (22-28); Base Excess (BEa) -3.5 mEq/L (-2.0 to +3.0); Calcium, Ionized (arterial) 1.16 mmol/L (1.12-1.30); Carboxyhemoglobin (COHb) 0.3 gm% (0.0-3.0); Hemoglobin (Hb) 8.6 g/dL (12.0-16.0); O2 Tension (PaO2), arterial 76.4 mmHg (> 70.0); pH, Arterial 7.49 (7.35-7.45)
[2022-04-19 07:06] LABS: CO2 Tension 25.2 mmHg (35.0-45.0); Puncture Site RBA
[2022-04-19] MEDS: Metoprolol Tartrate 25 MG TAB PO SCH ×2 (08:01→20:47)
[2022-04-19] MEDS: Pantoprazole 40 MG VIAL IVP SCH ×2 (08:02→20:44)
[2022-04-19 11:42] VITALS: BMI 21.3
[2022-04-19] MEDS: Piperacillin/Tazobactam 3.375 GM in Sodium Chloride 0.9% 100 ML IVPB SCH ×2 (12:36→20:47)
[2022-04-20] MEDS: Albuterol 200 PUFF (6.7GM INHALER) INH SCH ×3 (02:31→10:12)
[2022-04-20] MEDS: methylPREDNISolone Sod Succ 40 MG VIAL IVP SCH ×3 (02:32→14:05)
[2022-04-20] MEDS: Piperacillin/Tazobactam 3.375 GM in Sodium Chloride 0.9% 100 ML IVPB SCH ×2 (04:14→11:23)
[2022-04-20] MEDS: Pantoprazole 40 MG VIAL IVP SCH (09:12)
[2022-04-20] MEDS: Metoprolol Tartrate 25 MG TAB PO SCH (09:13)
[2022-04-20 10:14] VITALS: BP 121/62
[2022-04-20] MEDS ORDERED: Atropine Sulfate 1% Ophth Soln 5 ml Bottle PO PRN (12:49)
[2022-04-20] MEDS ORDERED: Morphine 4 MG/ML VIAL SLOW IVP PRN (12:50)
[2022-04-20] MEDS ORDERED: Lorazepam 2 MG/ML VIAL SLOW IVP PRN (12:51)
[2022-04-20 14:09] VITALS: TEMP 99
== END 2022-04-20 14:28 | disposition hospice, inpatient (51) | DRG 208 ==
LOC: ERS 13:53 → ERHOLD 15:44 → CCU 17:12
PROVIDERS: ADMIT Family Medicine; ATTEND Internal Medicine
PROC: 30233N1 Transfusion of Nonautologous Red Blood Cells into Peripheral Vein, Percutaneous Approach (ICD-10-PCS; principal; 2022-04-12)
PROC: 5A1945Z Respiratory Ventilation, 24-96 Consecutive Hours (ICD-10-PCS; 2022-04-12)
PROC: 0BH17EZ Insertion of Endotracheal Airway into Trachea, Via Natural or Artificial Opening (ICD-10-PCS; 2022-04-12)
PROC: 3E043XZ Introduction of Vasopressor into Central Vein, Percutaneous Approach (ICD-10-PCS; 2022-04-12)
PROC: 02HV33Z Insertion of Infusion Device into Superior Vena Cava, Percutaneous Approach (ICD-10-PCS; 2022-04-12)
PROC: 8E0ZXY6 Isolation (ICD-10-PCS; 2022-04-12)
PROC: 3E033XZ Introduction of Vasopressor into Peripheral Vein, Percutaneous Approach (ICD-10-PCS; 2022-04-12)
PROC: 0DH67UZ Insertion of Feeding Device into Stomach, Via Natural or Artificial Opening (ICD-10-PCS; 2022-04-12)
PROC: 3E0G76Z Introduction of Nutritional Substance into Upper GI, Via Natural or Artificial Opening (ICD-10-PCS; 2022-04-12)
PROC: B548ZZA Ultrasonography of Superior Vena Cava, Guidance (ICD-10-PCS; 2022-04-12)
PROC: 3E03329 Introduction of Other Anti-infective into Peripheral Vein, Percutaneous Approach (ICD-10-PCS; 2022-04-12)
PROC: 0BH17EZ Insertion of Endotracheal Airway into Trachea, Via Natural or Artificial Opening (ICD-10-PCS; 2022-04-16)
PROC: 5A1945Z Respiratory Ventilation, 24-96 Consecutive Hours (ICD-10-PCS; 2022-04-16)
DX: U07.1 COVID-19 (principal); J96.01 Acute respiratory failure with hypoxia; J12.82 Pneumonia due to coronavirus disease 2019; R57.8 Other shock; I63.512 Cerebral infarction due to unspecified occlusion or stenosis of left middle cerebral artery; I21.A1 Myocardial infarction type 2; I50.33 Acute on chronic diastolic (congestive) heart failure; R57.1 Hypovolemic shock; I13.0 Hypertensive heart and chronic kidney disease with heart failure and stage 1 through stage 4 chronic kidney disease, or unspecified chronic kidney disease; I69.354 Hemiplegia and hemiparesis following cerebral infarction affecting left non-dominant side; E87.2 Acidosis; K92.1 Melena; D62 Acute posthemorrhagic anemia; N39.0 Urinary tract infection, site not specified; N17.9 Acute kidney failure, unspecified; J98.11 Atelectasis; I47.2 Ventricular tachycardia; R64 Cachexia; Z66 Do not resuscitate; Z51.5 Encounter for palliative care; N28.1 Cyst of kidney, acquired; I48.0 Paroxysmal atrial fibrillation; I73.9 Peripheral vascular disease, unspecified; F41.9 Anxiety disorder, unspecified; I25.10 Atherosclerotic heart disease of native coronary artery without angina pectoris; K21.9 Gastro-esophageal reflux disease without esophagitis; I34.0 Nonrheumatic mitral (valve) insufficiency; N18.30 Chronic kidney disease, stage 3 unspecified; E78.00 Pure hypercholesterolemia, unspecified; F32.A Depression, unspecified; L89.151 Pressure ulcer of sacral region, stage 1; Z96.649 Presence of unspecified artificial hip joint; Z90.49 Acquired absence of other specified parts of digestive tract; E87.6 Hypokalemia; Z95.5 Presence of coronary angioplasty implant and graft; Z95.1 Presence of aortocoronary bypass graft; Z79.01 Long term (current) use of anticoagulants; Z79.82 Long term (current) use of aspirin; Z79.899 Other long term (current) drug therapy; Z79.02 Long term (current) use of antithrombotics/antiplatelets; I25.2 Old myocardial infarction; Z78.1 Physical restraint status; Z90.5 Acquired absence of kidney; Z87.891 Personal history of nicotine dependence; Z68.21 Body mass index [BMI] 21.0-21.9, adult
CPT/HCPCS: 31500; 36415; 36416; 36430; 36556; 36600; 51702; 70450; 71045; 71250; 76770; 80053; 80202; 80306; 81001; 81003; 81015; 82274; 82550; 82553; 82805; 83605; 83735; 83880; 84100; 84145; 84443; 84484; 85025; 85379; 86850; 86900; 86901; 87040; 87070; 87081; 87086; 87205; 89220; 93005; 93010; 93306; 93970; 94002; 94003; 96374; 96375; C9113; J0171; J0692; J0696; J1940; J2060; J2270; J2543; J2704; J2920; J3370; J3475; J3480; J3490; J7050; P9016; U0002

== ENCOUNTER 2022-04-20 14:38 | Inpatient (IN) | payer MEDICAID, MEDICARE, OTHER ==
[2022-04-20] MEDS ORDERED: Ondansetron PF 4 MG/2 ML Vial IVP PRN (15:15)
[2022-04-20] MEDS ORDERED: Scopolamine 1.5 mg/72 hour Patch TOP PRN (15:15)
[2022-04-20] MEDS ORDERED: Haloperidol Lactate 5 MG/ML VIAL SLOW IVP PRN (15:15)
[2022-04-20] MEDS ORDERED: Lorazepam 2 MG/ML VIAL SLOW IVP PRN (15:16)
[2022-04-20] MEDS ORDERED: Morphine 4 MG/ML VIAL SLOW IVP PRN (15:21)
[2022-04-20] MEDS ORDERED: Morphine 2 MG/ML VIAL SLOW IVP PRN (15:22)
[2022-04-20] MEDS ORDERED: Bisacodyl 10 MG SUPP PR PRN (15:23)
[2022-04-20] MEDS: Lorazepam 2 MG/ML VIAL SLOW IVP SCH ×2 (18:07→21:01)
[2022-04-21] MEDS: Lorazepam 2 MG/ML VIAL SLOW IVP SCH ×4 (00:48→13:06)
[2022-04-21] MEDS ORDERED: Lorazepam 1 MG TAB PO SCH (17:45)
[2022-04-21] MEDS: Morphine IR Tab 15 MG TAB PO SCH ×3 (18:19→21:07)
[2022-04-21] MEDS: Lorazepam 1 MG TAB PO SCH (21:05)
[2022-04-22] MEDS: Lorazepam 1 MG TAB PO SCH ×6 (00:28→20:00)
[2022-04-22] MEDS: Morphine IR Tab 15 MG TAB PO SCH ×12 (00:28→22:01)
[2022-04-23] MEDS: Lorazepam 1 MG TAB PO SCH ×6 (00:02→19:06)
[2022-04-23] MEDS: Morphine IR Tab 15 MG TAB PO SCH ×10 (00:02→19:06)
[2022-04-23 08:30] VITALS: BP 137/84; TEMP 98.9
== END 2022-04-23 19:15 | disposition hospice, inpatient (51) | DRG 951 ==
LOC: CCU 14:38 → T4-B 18:44
PROVIDERS: ADMIT Family Medicine; ATTEND Family Medicine
DX: Z51.5 Encounter for palliative care (principal); Z66 Do not resuscitate; J96.01 Acute respiratory failure with hypoxia; R57.8 Other shock; I50.32 Chronic diastolic (congestive) heart failure; I13.0 Hypertensive heart and chronic kidney disease with heart failure and stage 1 through stage 4 chronic kidney disease, or unspecified chronic kidney disease; E87.2 Acidosis; I69.354 Hemiplegia and hemiparesis following cerebral infarction affecting left non-dominant side; K21.9 Gastro-esophageal reflux disease without esophagitis; N18.30 Chronic kidney disease, stage 3 unspecified; N26.1 Atrophy of kidney (terminal); I34.0 Nonrheumatic mitral (valve) insufficiency; I25.10 Atherosclerotic heart disease of native coronary artery without angina pectoris; Z95.5 Presence of coronary angioplasty implant and graft; Z95.1 Presence of aortocoronary bypass graft; Z95.818 Presence of other cardiac implants and grafts; Z79.899 Other long term (current) drug therapy; Z79.82 Long term (current) use of aspirin; Z79.02 Long term (current) use of antithrombotics/antiplatelets; Z90.5 Acquired absence of kidney
CPT/HCPCS: J2060; U0003; U0005